=== PATIENT | female | born 1975 | race Caucasian/White ===

== ENCOUNTER 2023-07-29 23:17 | Emergency (ER) | payer SELFPAY ==
[2023-07-29 23:29] VITALS: BP 113/86; PULSE 115; RESP 20; TEMP 100.9; BMI 37.8
[2023-07-30 02:33] LABS: EPI CELLS 20 /uL (0-25.1); HYALINE CASTS 1 /uL (0-3.1); URINE APPEARANCE TURBID; URINE BACTERIA >9,000 /uL (0-1359); URINE BILIRUBIN 1+ (NEGATIVE); URINE COLOR DK YELLOW; URINE GLUCOSE (UA) NEGATIVE (NEGATIVE); URINE KETONE 2+ (NEGATIVE); URINE LEUK ESTERASE 3+ (NEGATIVE); URINE NITRITE POSITIVE (NEGATIVE); URINE PROTEIN 3+ (NEGATIVE); URINE WBC 8162 /uL (0-25.8)
== END 2023-07-30 02:19 | disposition home or self-care (01) ==
LOC: JER 23:17
DX: B34.9 Viral infection, unspecified (principal); R50.9 Fever, unspecified; R51.9 Headache, unspecified; M79.10 Myalgia, unspecified site; R09.81 Nasal congestion; Z20.822 Contact with and (suspected) exposure to COVID-19
CPT/HCPCS: 0241U-QW; 81003; 87086; 87186; 99283-25

== ENCOUNTER 2023-07-30 20:22 | Inpatient (IN) | payer OTHER ==
[2023-07-30 20:37] VITALS: BMI 37.8
[2023-07-30] MEDS ORDERED: FAMOTIDINE 20 MG/50 ML IVPB 20 MG/50 ML MG IVPB ONE ×2 (21:43→21:47)
[2023-07-30] MEDS ORDERED: KETOROLAC TROMETHAMINE 30 MG/1 ML VIAL IVPUSH ONE (21:43)
[2023-07-30] MEDS ORDERED: SODIUM CHLORIDE 0.9% 500 ML INFUS.BAG IV ONE (21:44)
[2023-07-30] MEDS ORDERED: KETOROLAC TROMETHAMINE 30 MG/1 ML VIAL ONE (21:47)
[2023-07-30] MEDS ORDERED: ONDANSETRON 4 MG/2 ML VIAL IVPUSH ONE (21:48)
[2023-07-30] MEDS ORDERED: ONDANSETRON 4 MG/2 ML VIAL ONE (21:49)
[2023-07-30 22:09] LABS: EOS % 0.1 % (0-4.5); HEMATOCRIT 39.3 % (32.4-45.2); HEMOGLOBIN 13.3 GM/dL (10.7-15.3); LYMPH % 3.1 % (8-40); MCH 29.1 pg (25.7-33.7); MEAN CELL VOLUME 85.7 fl (80-96); MEAN PLT VOLUME 8.9 fl (7.5-11.1); MONO % 0.6 % (3.8-10.2); NEUT % 96.2 % (42.8-82.8); PLATELET COUNT 174 10^3/uL (134-434); RBC 4.58 M/mm3 (3.60-5.2); RDW 13.6 % (11.6-15.6); WHITE BLOOD COUNT 11.9 K/mm3 (4.0-10.0)
[2023-07-30 22:14] LABS: EPI CELLS >36 /uL (0-25.1); HCG,QUALITATIVE URINE Negative; HYALINE CASTS 1 /uL (0-3.1); URINE APPEARANCE TURBID; URINE BACTERIA >9,000 /uL (0-1359); URINE BILIRUBIN 2+ (NEGATIVE); URINE COLOR DK YELLOW; URINE GLUCOSE (UA) NEGATIVE (NEGATIVE); URINE KETONE TRACE (NEGATIVE); URINE LEUK ESTERASE 3+ (NEGATIVE); URINE NITRITE NEGATIVE (NEGATIVE); URINE PROTEIN 3+ (NEGATIVE); URINE WBC 3352 /uL (0-25.8)
[2023-07-30 22:24] LABS: POTASSIUM 3.6 mmol/L (3.5-5.1)
[2023-07-30] MEDS ORDERED: CEFTRIAXONE 1 GM in DEXTROSE 5%-WATER - 100 ML IVPB ONE (22:25)
[2023-07-30 22:26] LABS: CALCIUM 8.8 mg/dL (8.5-10.1)
[2023-07-30 22:27] LABS: ALBUMIN 3.1 g/dl (3.4-5.0); BLOOD UREA NITROGEN 16.8 mg/dL (7-18)
[2023-07-30 22:29] LABS: CREATININE 1.4 mg/dL (0.55-1.3)
[2023-07-30 22:31] LABS: BILIRUBIN,TOTAL 0.8 mg/dL (0.2-1); TOT PROT 7.4 g/dl (6.4-8.2)
[2023-07-30 22:34] LABS: URINE RBC 280.7 /uL (0-23.9)
[2023-07-30] MEDS ORDERED: CEFTRIAXONE 1 GM/50 ML BAG ONE (22:34)
[2023-07-30 22:55] LABS: ANISOCYTOSIS 0; MACROCYTOSIS 0
[2023-07-31] MEDS: SODIUM CHLORIDE 1,000 ML IV SCH (05:55)
[2023-07-31 08:16] LABS: HEMOGLOBIN 11.8 GM/dL (10.7-15.3); MCHC 33.7 g/dl (32.0-36.0); MEAN PLT VOLUME 9.1 fl (7.5-11.1); PLATELET COUNT 164 10^3/uL (134-434); RBC 4.06 M/mm3 (3.60-5.2); RDW 13.8 % (11.6-15.6); WHITE BLOOD COUNT 19.2 K/mm3 (4.0-10.0)
[2023-07-31 08:31] LABS: POTASSIUM 3.7 mmol/L (3.5-5.1)
[2023-07-31 08:38] LABS: CALCIUM 7.9 mg/dL (8.5-10.1)
[2023-07-31 08:39] LABS: ALBUMIN 2.6 g/dl (3.4-5.0); BLOOD UREA NITROGEN 18.3 mg/dL (7-18); MAGNESIUM 1.8 mg/dL (1.8-2.4); PHOSPHOROUS 2.8 mg/dL (2.5-4.9)
[2023-07-31 08:41] LABS: BILIRUBIN,TOTAL 0.4 mg/dL (0.2-1); TOT PROT 6.3 g/dl (6.4-8.2)
[2023-07-31 08:42] LABS: CREATININE 1.2 mg/dL (0.55-1.3)
[2023-07-31] MEDS ORDERED: PIPERACILLIN/TAZOB 3.375 GM 3.375 GM in DEXTROSE 5%-WATER - 50 ML IVPB SCH (09:00)
[2023-07-31 09:23] LABS: ANISOCYTOSIS 1+; MACROCYTOSIS 0
[2023-07-31] MEDS: ENOXAPARIN NA (PORCINE) 40 MG/0.4 ML DISP.SYRIN SQ SCH (09:27)
[2023-07-31] MEDS: ACETAMINOPHEN 1000 MG/100 ML BAG IVPB PRN ×2 (09:46→22:21)
[2023-07-31] MEDS: PIPERACILLIN/TAZOB 3.375 GM 3.375 GM in DEXTROSE 5%-WATER - 50 ML IVPB SCH (18:14)
[2023-08-01] MEDS: PIPERACILLIN/TAZOB 3.375 GM 3.375 GM in DEXTROSE 5%-WATER - 50 ML IVPB SCH ×3 (01:56→17:13)
[2023-08-01] MEDS: SODIUM CHLORIDE 1,000 ML IV SCH (06:09)
[2023-08-01 08:33] LABS: BASO % 0.1 % (0-2.0); EOS % 0.4 % (0-4.5); HEMATOCRIT 31.3 % (32.4-45.2); HEMOGLOBIN 10.5 GM/dL (10.7-15.3); LYMPH % 7.3 % (8-40); MCHC 33.4 g/dl (32.0-36.0); MEAN CELL VOLUME 86.9 fl (80-96); MEAN PLT VOLUME 9.7 fl (7.5-11.1); NEUT % 85.2 % (42.8-82.8); PLATELET COUNT 180 10^3/uL (134-434); RDW 13.6 % (11.6-15.6); WHITE BLOOD COUNT 16.7 K/mm3 (4.0-10.0)
[2023-08-01 08:43] LABS: INR 1.13 (0.83-1.09); PROTHROMBIN TIME (PATIENT) 13.1 SEC (9.7-13.0)
[2023-08-01 08:46] LABS: ACTIVATED PTT 27.2 SECONDS (25.2-36.5)
[2023-08-01 09:02] LABS: POTASSIUM 3.7 mmol/L (3.5-5.1)
[2023-08-01 09:07] LABS: CALCIUM 7.9 mg/dL (8.5-10.1)
[2023-08-01 09:09] LABS: ALBUMIN 2.2 g/dl (3.4-5.0); BLOOD UREA NITROGEN 16.5 mg/dL (7-18); MAGNESIUM 1.9 mg/dL (1.8-2.4)
[2023-08-01 09:11] LABS: CREATININE 0.8 mg/dL (0.55-1.3); PHOSPHOROUS 2.3 mg/dL (2.5-4.9)
[2023-08-01 09:12] LABS: TOT PROT 5.8 g/dl (6.4-8.2)
[2023-08-01 09:13] LABS: BILIRUBIN,TOTAL 0.4 mg/dL (0.2-1)
[2023-08-01] MEDS ORDERED: ONDANSETRON 4 MG/2 ML VIAL IVPUSH PRN (09:19)
[2023-08-01] MEDS: ENOXAPARIN NA (PORCINE) 40 MG/0.4 ML DISP.SYRIN SQ SCH (09:24)
[2023-08-01] MEDS: LACTATED RINGERS SOLUTION 1,000 ML/1,000 ML INFUS.BAG IV SCH (13:49)
[2023-08-01] MEDS ORDERED: ACETAMINOPHEN 325 MG TABLET (FP) PO PRN (18:07)
[2023-08-01] MEDS: KETOROLAC TROMETHAMINE 10 MG TABLET PO PRN (23:43)
[2023-08-02] MEDS: PIPERACILLIN/TAZOB 3.375 GM 3.375 GM in DEXTROSE 5%-WATER - 50 ML IVPB SCH ×3 (02:18→17:56)
[2023-08-02] MEDS: SODIUM CHLORIDE 1,000 ML IV SCH (06:42)
[2023-08-02 09:33] LABS: BASO % 0.5 % (0-2.0); EOS % 0.6 % (0-4.5); HEMATOCRIT 30.2 % (32.4-45.2); HEMOGLOBIN 10.1 GM/dL (10.7-15.3); LYMPH % 12.3 % (8-40); MCH 28.9 pg (25.7-33.7); MCHC 33.5 g/dl (32.0-36.0); MEAN CELL VOLUME 86.4 fl (80-96); MEAN PLT VOLUME 9.6 fl (7.5-11.1); MONO % 7.1 % (3.8-10.2); NEUT % 79.5 % (42.8-82.8); PLATELET COUNT 196 10^3/uL (134-434); RBC 3.49 M/mm3 (3.60-5.2); RDW 13.5 % (11.6-15.6); WHITE BLOOD COUNT 10.6 K/mm3 (4.0-10.0)
[2023-08-02 09:48] LABS: POTASSIUM 3.9 mmol/L (3.5-5.1)
[2023-08-02 09:50] LABS: BLOOD UREA NITROGEN 12.7 mg/dL (7-18); CALCIUM 7.7 mg/dL (8.5-10.1)
[2023-08-02 09:54] LABS: CREATININE 0.9 mg/dL (0.55-1.3)
[2023-08-02] MEDS: ENOXAPARIN NA (PORCINE) 40 MG/0.4 ML DISP.SYRIN SQ SCH (10:07)
[2023-08-02] MEDS: KETOROLAC TROMETHAMINE 10 MG TABLET PO PRN (10:16)
[2023-08-02 10:51] LABS: ALBUMIN 2.3 g/dl (3.4-5.0)
[2023-08-02 10:54] LABS: BILIRUBIN,DIRECT 0.2 mg/dL (0.0-0.2)
[2023-08-02 10:56] LABS: BILIRUBIN,TOTAL 0.3 mg/dL (0.2-1); TOT PROT 5.8 g/dl (6.4-8.2)
[2023-08-02] MEDS: LACTATED RINGERS SOLUTION 1,000 ML/1,000 ML INFUS.BAG IV SCH (16:00)
[2023-08-03] MEDS: PIPERACILLIN/TAZOB 3.375 GM 3.375 GM in DEXTROSE 5%-WATER - 50 ML IVPB SCH ×3 (01:30→17:04)
[2023-08-03] MEDS: KETOROLAC TROMETHAMINE 10 MG TABLET PO PRN ×2 (02:19→23:01)
[2023-08-03] MEDS: ENOXAPARIN NA (PORCINE) 40 MG/0.4 ML DISP.SYRIN SQ SCH (09:30)
[2023-08-03] MEDS: TAMSULOSIN HCL 0.4 MG CAP PO SCH (09:30)
[2023-08-03] MEDS: SODIUM CHLORIDE 1,000 ML IV SCH (09:31)
[2023-08-03 10:11] LABS: POTASSIUM 4.1 mmol/L (3.5-5.1)
[2023-08-03 10:16] LABS: ALBUMIN 2.4 g/dl (3.4-5.0); BLOOD UREA NITROGEN 9.8 mg/dL (7-18); CALCIUM 8.2 mg/dL (8.5-10.1)
[2023-08-03 10:17] LABS: MAGNESIUM 1.8 mg/dL (1.8-2.4)
[2023-08-03 10:19] LABS: CREATININE 0.8 mg/dL (0.55-1.3)
[2023-08-03 10:20] LABS: BILIRUBIN,TOTAL 0.2 mg/dL (0.2-1)
[2023-08-03 10:45] LABS: BASO % 0.5 % (0-2.0); EOS % 1.6 % (0-4.5); HEMATOCRIT 32.7 % (32.4-45.2); LYMPH % 25.2 % (8-40); MCH 28.4 pg (25.7-33.7); MCHC 33.5 g/dl (32.0-36.0); MEAN CELL VOLUME 84.8 fl (80-96); MEAN PLT VOLUME 8.8 fl (7.5-11.1); MONO % 13.7 % (3.8-10.2); PLATELET COUNT 197 10^3/uL (134-434); RBC 3.85 M/mm3 (3.60-5.2); RDW 13.3 % (11.6-15.6); WHITE BLOOD COUNT 7.1 K/mm3 (4.0-10.0)
[2023-08-04] MEDS: PIPERACILLIN/TAZOB 3.375 GM 3.375 GM in DEXTROSE 5%-WATER - 50 ML IVPB SCH ×3 (01:22→18:05)
[2023-08-04] MEDS: SODIUM CHLORIDE 1,000 ML IV SCH ×2 (01:25→18:06)
[2023-08-04] MEDS: TAMSULOSIN HCL 0.4 MG CAP PO SCH (08:27)
[2023-08-04] MEDS: ENOXAPARIN NA (PORCINE) 40 MG/0.4 ML DISP.SYRIN SQ SCH (09:33)
[2023-08-04] MEDS: KETOROLAC TROMETHAMINE 10 MG TABLET PO PRN (09:38)
[2023-08-04 09:45] LABS: BASO % 0.3 % (0-2.0); EOS % 2.3 % (0-4.5); LYMPH % 19.9 % (8-40); MCH 28.5 pg (25.7-33.7); MCHC 33.2 g/dl (32.0-36.0); MEAN CELL VOLUME 85.8 fl (80-96); MEAN PLT VOLUME 8.6 fl (7.5-11.1); MONO % 8.7 % (3.8-10.2); NEUT % 68.8 % (42.8-82.8); PLATELET COUNT 263 10^3/uL (134-434); RBC 3.84 M/mm3 (3.60-5.2); RDW 13.4 % (11.6-15.6); WHITE BLOOD COUNT 9.8 K/mm3 (4.0-10.0)
[2023-08-04 10:02] LABS: POTASSIUM 3.9 mmol/L (3.5-5.1)
[2023-08-04 10:08] LABS: CALCIUM 8.5 mg/dL (8.5-10.1)
[2023-08-04 10:09] LABS: ALBUMIN 2.5 g/dl (3.4-5.0); BLOOD UREA NITROGEN 10.6 mg/dL (7-18); MAGNESIUM 1.9 mg/dL (1.8-2.4)
[2023-08-04 10:11] LABS: CREATININE 0.8 mg/dL (0.55-1.3)
[2023-08-04 10:12] LABS: BILIRUBIN,TOTAL 0.2 mg/dL (0.2-1); TOT PROT 6.6 g/dl (6.4-8.2)
[2023-08-05] MEDS: PIPERACILLIN/TAZOB 3.375 GM 3.375 GM in DEXTROSE 5%-WATER - 50 ML IVPB SCH ×3 (01:48→17:38)
[2023-08-05] MEDS ORDERED: BUPIVACAINE HCL/PF 0.5% (5MG/ML) 10 ML VIAL ONE (07:36)
[2023-08-05] MEDS ORDERED: ROCURONIUM BROMIDE 50 MG/5 ML SYRINGE ONE (07:45)
[2023-08-05] MEDS ORDERED: SUCCINYLCHOLINE CHLORIDE 200 MG/10 ML VIAL ONE (07:45)
[2023-08-05] MEDS ORDERED: PROPOFOL 40 ML ONE (07:45)
[2023-08-05] MEDS ORDERED: MIDAZOLAM HCL 2 MG/2 ML SINGLE DOSE VIAL ONE (07:45)
[2023-08-05] MEDS ORDERED: BUPIVACAINE HCL/PF 0.5% (5 MG/ML) 30 ML VIAL IJ ONE (08:50)
[2023-08-05] MEDS ORDERED: HYDROmorphone HCl 2 MG/ML VIAL ONE (08:56)
[2023-08-05] MEDS ORDERED: NEOSTIGMINE METHYLSULFATE 0.5 MG/1 ML - 10 ML MDV ONE (09:36)
[2023-08-05] MEDS ORDERED: PROPOFOL 20 ML ONE ×2 (09:43)
[2023-08-05] MEDS ORDERED: PROMETHAZINE HCL 25 MG/1 ML VIAL IVPB PRN (10:24)
[2023-08-05] MEDS ORDERED: IBUPROFEN 600 MG TABLET (FP) PO PRN (10:29)
[2023-08-05] MEDS ORDERED: oxyCODONE HCL 5 MG TABLET PO PRN (10:29)
[2023-08-05] MEDS ORDERED: ONDANSETRON 4 MG/2 ML VIAL IVPUSH PRN (10:29)
[2023-08-05] MEDS ORDERED: LACTATED RINGERS SOLUTION 1,000 ML IV SCH (10:30)
[2023-08-05] MEDS ORDERED: ACETAMINOPHEN INJECTION 100 ML IVPB ONE (10:31)
[2023-08-05] MEDS: ACETAMINOPHEN 1000 MG/100 ML BAG IVPB SCH ×2 (10:33→18:44)
[2023-08-05] MEDS ORDERED: ACETAMINOPHEN 1000 MG/100 ML BAG IVPB ONE (10:33)
[2023-08-05] MEDS: SODIUM CHLORIDE 1,000 ML IV SCH ×2 (11:00→11:15)
[2023-08-05] MEDS: TAMSULOSIN HCL 0.4 MG CAP PO SCH (11:15)
[2023-08-05] MEDS: ENOXAPARIN NA (PORCINE) 40 MG/0.4 ML DISP.SYRIN SQ SCH (11:15)
[2023-08-05] MEDS: oxyCODONE HCL 5 MG TABLET PO PRN (12:28)
[2023-08-06] MEDS: PIPERACILLIN/TAZOB 3.375 GM 3.375 GM in DEXTROSE 5%-WATER - 50 ML IVPB SCH ×3 (02:21→18:10)
[2023-08-06] MEDS: oxyCODONE HCL 5 MG TABLET PO PRN (02:26)
[2023-08-06] MEDS: ACETAMINOPHEN 1000 MG/100 ML BAG IVPB SCH ×2 (04:10→11:09)
[2023-08-06 06:20] VITALS: RESP 18
[2023-08-06] MEDS ORDERED: TAMSULOSIN HCL 0.4 MG CAP PO SCH (08:30)
[2023-08-06 09:44] LABS: BASO % 0.2 % (0-2.0); EOS % 1.3 % (0-4.5); HEMATOCRIT 32.6 % (32.4-45.2); HEMOGLOBIN 10.9 GM/dL (10.7-15.3); LYMPH % 19.3 % (8-40); MCH 28.3 pg (25.7-33.7); MCHC 33.5 g/dl (32.0-36.0); MEAN CELL VOLUME 84.5 fl (80-96); MEAN PLT VOLUME 7.9 fl (7.5-11.1); MONO % 6.1 % (3.8-10.2); NEUT % 73.1 % (42.8-82.8); PLATELET COUNT 355 10^3/uL (134-434); RBC 3.86 M/mm3 (3.60-5.2); RDW 13.6 % (11.6-15.6); WHITE BLOOD COUNT 12.4 K/mm3 (4.0-10.0)
[2023-08-06 09:59] LABS: POTASSIUM 4.1 mmol/L (3.5-5.1)
[2023-08-06] MEDS ORDERED: ENOXAPARIN NA (PORCINE) 40 MG/0.4 ML DISP.SYRIN SQ SCH (10:00)
[2023-08-06 10:20] LABS: BILIRUBIN,TOTAL 0.2 mg/dL (0.2-1)
[2023-08-06 10:24] LABS: ALBUMIN 2.6 g/dl (3.4-5.0); BLOOD UREA NITROGEN 10.6 mg/dL (7-18)
[2023-08-06 10:27] LABS: CALCIUM 8.5 mg/dL (8.5-10.1); CREATININE 0.8 mg/dL (0.55-1.3)
[2023-08-06 10:28] LABS: MAGNESIUM 2.1 mg/dL (1.8-2.4); TOT PROT 6.6 g/dl (6.4-8.2)
[2023-08-06] MEDS: SODIUM CHLORIDE 1,000 ML IV SCH (11:14)
[2023-08-06 15:42] VITALS: BP 123/73; PULSE 73; TEMP 98.3
[2023-08-07] MEDS ORDERED: CEPHALEXIN MONOHYDRATE 500 MG CAPSULE (UD) PO SCH (06:00)
== END 2023-08-06 21:25 | disposition home or self-care (01) | DRG 710 ==
LOC: JER 20:22 → JERBED 07-31 03:48 → J8W 07-31 06:58
PROVIDERS: ADMIT Internal Medicine; ATTEND Nurse Practitioner Acute Care
PROC: 0FT44ZZ Resection of Gallbladder, Percutaneous Endoscopic Approach (ICD-10-PCS; principal; 2023-08-05 08:00)
DX: A41.9 Sepsis, unspecified organism (principal); K82.1 Hydrops of gallbladder; K80.00 Calculus of gallbladder with acute cholecystitis without obstruction; B96.20 Unspecified Escherichia coli [E. coli] as the cause of diseases classified elsewhere; N10 Acute pyelonephritis; E66.9 Obesity, unspecified; Z68.37 Body mass index [BMI] 37.0-37.9, adult
CPT/HCPCS: 36415; 74177-TC; 76705-TC; 80048; 80053; 80076; 81003; 83036; 83605; 83735; 84100; 84484; 84703; 85025; 85610; 85730; 87040; 87086; 87186; 88304-TC; 93005; 93010; 94010; 94760; 99285-25; Q9967